=== PATIENT | male | born 1965 | race Caucasian/White ===

== ENCOUNTER → 2018-01-20 | Outpatient (CLI) | payer BC ==
--- NOTE | 2018-01-20 14:59 | US ---
EXAMINATION TYPE: US bladder DATE OF EXAM: 01/20/2018 COMPARISON: NONE CLINICAL HISTORY: R10.9 Unspecified abdominal pain. Pelvic pressure for 3 days, recent chills, mild u rinary frequency EXAM MEASUREMENTS: Post Void Residual Volume: 17.1 mL Color Doppler performed to assess ureteral jets. Bilateral Jets seen: yes Normal Post Void Residual (less than 50ml): yes IMPRESSION: No significant abnormality seen.
== END | disposition home or self-care (01) ==
LOC: RADUSWWP 13:38
PROVIDERS: ATTEND Family Medicine
DX: R10.9 Unspecified abdominal pain (principal)
CPT/HCPCS: 76857

== ENCOUNTER 2020-10-05 10:40 | Observation (INO) | payer BC ==
[2020-10-05 11:02] LABS: Glucose,Whole Blood 178 mg/dL (75-99)
[2020-10-05] MEDS ORDERED: SODIUM CHLORIDE 0.9% 500 ML 500 ML IV STA (11:07)
--- NOTE | 2020-10-05 11:16 | ED ---
General Adult HPI - General Chief complaint: Neuro Symptoms/Deficit Stated complaint: R facial droop Time Seen by Provider: 10/05/20 10:45 Source: patient, RN notes reviewed, old records reviewed Mode of arrival: wheelchair Limitations: no limitations - History of Present Illness Initial comments: This a 55-year-old male who presents emergency Department with a recent past medical history significant for COVID then 5 weeks later myocarditis and at that time also diagnosed with A. fib and placed on amiodarone beta leia and eliquis. She presents today stating that last night he noticed his eye tearing at about 11:00 at night and continued to tear throughout the night. Patient states she got up and 10:00 today he went to eat cereal and he noticed a serial was falling out of the right side of his mouth. Patient then looked in the mirror noticed that he had facial droop on the right side. Patient denies any weakness or numbness. Patient denies any headache. Patient denies any chest pain palpitations difficulty breathing shortness of breath. Patient denies any recent fever chills or cough. Patient denies abdominal pain patient denies nausea vomiting diarrhea. - Related Data Home Medications Medication Instructions Recorded Confirmed Amiodarone HCl [Pacerone] 200 mg PO BID 10/05/20 10/05/20 Apixaban [Eliquis] 5 mg PO BID 10/05/20 10/05/20 Atorvastatin Calcium [Lipitor] 40 mg PO HS 10/05/20 10/05/20 Metoprolol Succinate (ER) [Toprol 12.5 mg PO DAILY 10/05/20 10/05/20 Xl] Sacubitril/Valsartan [Entresto 24 1 tab PO BID 10/05/20 10/05/20 mg-26 mg Tablet] Spironolactone [Aldactone] 12.5 mg PO DAILY 10/05/20 10/05/20 Allergies Allergy/AdvReac Type Severity Reaction Status Date / Time No Known Allergies Allergy Verified 10/05/20 11:41 Review of Systems ROS Statement: Those systems with pertinent positive or pertinent negative responses have been documented in the HPI. ROS Other: All systems not noted in ROS Statement are negative. Past Medical History Past Medical History: Atrial Flutter Additional Past Medical History / Comment(s): myocarditis possibly due to covid History of Any Multi-Drug Resistant Organisms: None Reported Past Surgical History: Hernia Repair Additional Past Surgical History / Comment(s): R bicep Past Psychological History: No Psychological Hx Reported Smoking Status: Never smoker Past Alcohol Use History: Occasional Past Drug Use History: None Reported General Exam - General Exam Comments Initial Comments: GENERAL: Patient is well-developed and well-nourished. Patient is nontoxic and well- hydrated and is in mild distress. ENT: Neck is soft and supple. No significant lymphadenopathy is noted. Oropharynx is clear. Moist mucous membranes. Neck has full range of motion without eliciting any pain. EYES: The sclera were anicteric and conjunctiva were pink and moist. Extraocular movements were intact and pupils were equal round and reactive to light. Eyelids were unremarkable. PULMONARY: Unlabored respirations. Good breath sounds bilaterally. No audible rales rhonchi or wheezing was noted. CARDIOVASCULAR: There is a regular rate and rhythm without any murmurs gallops or rubs. ABDOMEN: Soft and nontender with normal bowel sounds. SKIN: Skin is clear with no lesions or rashes and otherwise unremarkable. NEUROLOGIC: Patient is alert and oriented x3. Patient has right-sided facial droop forehead appears to be involved as well but not completely. MUSCULOSKELETAL: Normal extremities with adequate strength and full range of motion. No lower extremity swelling or edema. No calf tenderness. LYMPHATICS: No significant lymphadenopathy is noted PSYCHIATRIC: Normal psychiatric evaluation. Limitations: no limitations Course Vital Signs 10/05/20 10/05/20 10/05/20 10:42 11:15 11:30 Temperature 98 F Pulse Rate 90 85 72 Respiratory 18 18 18 Rate Blood Pressure 131/81 143/78 134/79 O2 Sat by Pulse 98 97 98 Oximetry Medical Decision Making - Medical Decision Making EKG shows normal sinus rhythm at 80 bpm WI interval is 168 QRSs 86 QT interval 4 20 QTC is 44. Patient's EKG shows no ST segment elevation or depression. CT of the brain shows no acute abnormalities CT of the head and neck show no acute abnormality. Dr. Rodarte has reviewed the CAT scans he did not believe the patient was having a stroke however he wanted the patient admitted to get an MRI and put on aspirin. 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 - Lab Data Result diagrams: 10/05/20 11:22 10/05/20 11:22 Lab Results 10/05/20 10/05/2010/05/21 Range/Units 10:53 11:22 11:22 WBC 13.1 H (3.8-10.6) k/uL RBC 4.87 (4.30-5.90) m/uL Hgb 15.1 (13.0-17.5) gm/dL Hct 43.9 (39.0-53.0) % MCV 90.2 (80.0-100.0) fL MCH 31.1 (25.0-35.0) pg MCHC 34.4 (31.0-37.0) g/dL RDW 12.2 (11.5-15.5) % Plt Count 477 H (150-450) k/uL MPV 6.6 Neutrophils % 78 % Lymphocytes % 14 % Monocytes % 4 % Eosinophils % 1 % Basophils % 1 % Neutrophils # 10.3 H (1.3-7.7) k/uL Lymphocytes # 1.9 (1.0-4.8) k/uL Monocytes # 0.5 (0-1.0) k/uL Eosinophils # 0.2 (0-0.7) k/uL Basophils # 0.1 (0-0.2) k/uL PT 11.2 (9.0-12.0) sec INR 1.1 (<1.2) APTT 26.5 (22.0-30.0) sec Sodium (137-145) mmol/L Potassium (3.5-5.1) mmol/L Chloride (98-107) mmol/L Carbon Dioxide (22-30) mmol/L Anion Gap mmol/L BUN (9-20) mg/dL Creatinine (0.66-1.25) mg/dL Est GFR (CKD-EPI)AfAm (>60 ml/min/1.73 sqM) Est GFR (CKD-EPI)NonAf (>60 ml/min/1.73 sqM) Glucose (74-99) mg/dL POC Glucose (mg/dL) 178 H (75-99) mg/dL POC Glu Epic Trainer ID Juju Montalvo Calcium (8.4-10.2) mg/dL Total Bilirubin (0.2-1.3) mg/dL AST (17-59) U/L ALT (4-49) U/L Alkaline Phosphatase (38-126) U/L Total Protein (6.3-8.2) g/dL Albumin (3.5-5.0) g/dL Coronavirus (PCR) (Not Detectd) 10/05/20 10/05/20 Range/Units 11:22 12:02 WBC (3.8-10.6) k/uL RBC (4.30-5.90) m/uL Hgb (13.0-17.5) gm/dL Hct (39.0-53.0) % MCV (80.0-100.0) fL MCH (25.0-35.0) pg MCHC (31.0-37.0) g/dL RDW (11.5-15.5) % Plt Count (150-450) k/uL MPV Neutrophils % % Lymphocytes % % Monocytes % % Eosinophils % % Basophils % % Neutrophils # (1.3-7.7) k/uL Lymphocytes # (1.0-4.8) k/uL Monocytes # (0-1.0) k/uL Eosinophils # (0-0.7) k/uL Basophils # (0-0.2) k/uL PT (9.0-12.0) sec INR (<1.2) APTT (22.0-30.0) sec Sodium 137 (137-145) mmol/L Potassium 4.4 (3.5-5.1) mmol/L Chloride 104 (98-107) mmol/L Carbon Dioxide 23 (22-30) mmol/L Anion Gap 10 mmol/L BUN 15 (9-20) mg/dL Creatinine 0.96 (0.66-1.25) mg/dL Est GFR (CKD-EPI)AfAm >90 (>60 ml/min/1.73 sqM) Est GFR (CKD-EPI)NonAf 90 (>60 ml/min/1.73 sqM) Glucose 187 H (74-99) mg/dL POC Glucose (mg/dL) (75-99) mg/dL POC Glu Epic Trainer ID Calcium 9.3 (8.4-10.2) mg/dL Total Bilirubin 0.7 (0.2-1.3) mg/dL AST 32 (17-59) U/L ALT 50 H (4-49) U/L Alkaline Phosphatase 90 (38-126) U/L Total Protein 7.3 (6.3-8.2) g/dL Albumin 3.9 (3.5-5.0) g/dL Coronavirus (PCR) Not Detected (Not Detectd) Disposition Clinical Impression: Facial droop, Arora's palsy Disposition: ADMITTED IP TO THIS HOSP Referrals: Andrés Jeffers MD [Primary Care Provider] - 1-2 days Time of Disposition: 12:37
[2020-10-05 11:29] LABS: Basophils # (A) 0.1 k/uL (0-0.2); Basophils % (A) 1 %; Eosinophils # (A) 0.2 k/uL (0-0.7); Eosinophils % (A) 1 %; HCT 43.9 % (39.0-53.0); HGB 15.1 gm/dL (13.0-17.5); Lymphocytes # (A) 1.9 k/uL (1.0-4.8); Lymphocytes % (A) 14 %; MCH 31.1 pg (25.0-35.0); MCHC 34.4 g/dL (31.0-37.0); MCV 90.2 fL (80.0-100.0); Mean Platelet Volume 6.6; Monocytes # (A) 0.5 k/uL (0-1.0); Monocytes % (A) 4 %; Neutrophils # (A) 10.3 k/uL (1.3-7.7); Neutrophils % (A) 78 %; Platelet Count 477 k/uL (150-450); RBC 4.87 m/uL (4.30-5.90); RDW 12.2 % (11.5-15.5); WBC 13.1 k/uL (3.8-10.6)
[2020-10-05 11:49] LABS: INR 1.1 (<1.2); Partial Thromboplastin Time 26.5 sec (22.0-30.0); Prothrombin Time 11.2 sec (9.0-12.0)
[2020-10-05 11:53] LABS: ALT 50 U/L (4-49); AST 32 U/L (17-59); African American GFR (CKD) >90 (>60 ml/min/1.73 sqM); Albumin 3.9 g/dL (3.5-5.0); Alkaline Phosphatase 90 U/L (38-126); Anion Gap 10 mmol/L; Blood Urea Nitrogen 15 mg/dL (9-20); Calcium 9.3 mg/dL (8.4-10.2); Carbon Dioxide 23 mmol/L (22-30); Chloride 104 mmol/L (98-107); Glucose 187 mg/dL (74-99); Non-African American GFR(CKD) 90 (>60 ml/min/1.73 sqM); Potassium 4.4 mmol/L (3.5-5.1); Sodium 137 mmol/L (137-145); Total Bilirubin 0.7 mg/dL (0.2-1.3); Total Protein 7.3 g/dL (6.3-8.2)
--- NOTE | 2020-10-05 12:10 | CT ---
EXAMINATION TYPE: CT brain wo con for TPA DATE OF EXAM: 10/05/2020 COMPARISON: INDICATION: Right sided facial droop DLP: 1101.8 mGycm, Automated exposure control for dose reduction was used. CONTRAST: None CT of the brain is performed utilizing 3 mm thick sections through the posterior fossa and 3 mm thick sections through the remaining calvarium. Study is performed within 24 hours of arrival to the hosp [facility]. No abnormal hyperdensity is present to suggest an acute intracranial hemorrhage. No mass lesion is evident. No acute infarcts are evident. Ventricles and sulci are appropriate for the patient age. Paranasal sinuses and mastoid air cells within the [id number] are clear. IMPRESSIONS: 1. Normal CT Brain
--- NOTE | 2020-10-05 12:13 | XR ---
EXAMINATION TYPE: XR chest 2V DATE OF EXAM: 10/05/2020 COMPARISON: 08/09/2017 INDICATION: Acute mental status change right-sided drooping TECHNIQUE: Frontal and lateral views of the chest are obtained. FINDINGS: The heart size is normal. The pulmonary vasculature is normal. The lungs are clear. IMPRESSION: 1. No acute pulmonary process.
--- NOTE | 2020-10-05 12:24 | CT ---
EXAMINATION TYPE: CT angio head neck DATE OF EXAM: 10/05/2020 HISTORY: Right sided facial droop COMPARISON: None CT DLP: 745.6 mGycm. Automated Exposure Control for Dose Reduction was Utilized. TECHNIQUE: CTA scan of the neck is performed with IV Contrast, patient injected with 65 mL of Isovue 370, axial images are obtained, coronal and sagittal reformatted images are reviewed. Three-D recons tructed images are created on an independent workstation and reviewed. Source images are reviewed. FINDINGS: Carotid/Vascular Structures: There is a three-vessel arch. Vertebral arteries are codominant. Vertebr al arteries and internal carotid arteries are patent to the level of the skull base. Carotid bifurcat ions appear normal without focal stenosis. Cervical of [place]: Vertebral basilar system appears normal. Posterior cerebral vasculature is unrema rkable. Internal carotid arteries bifurcate normally into A1 and M1 segments. A2 segments are normal. The anterior communicating artery is patent. Left Posterior communicating artery is patent. Right po sterior communicating artery is patent. IMPRESSION: 1. No flow-limiting stenosis bilateral carotid bifurcations. 2. Normal [place] of [place].
[2020-10-05] MEDS ORDERED: ASPIRIN 325 MG TAB PO STA (12:37)
[2020-10-05] MEDS ORDERED: SODIUM CHLORIDE 0.9% 1,000 ML IV SCH (12:45)
[2020-10-05] MEDS: predniSONE 20 MG TAB PO SCH ×2 (13:36→19:58)
[2020-10-05] MEDS: valACYclovir HCL 1,000 MG TABLET PO SCH ×2 (13:37→19:58)
--- NOTE | 2020-10-05 18:54 | P.CNNES ---
History of Present Illness Consult date: 10/05/20 Reason for Consult: Arora's palsy History of Present Illness: The patient is a 55-year-old male who is seen in neurologic consultation on October 05, 2020, via teleneurology. Patient reports getting out of bed as usual this morning. He felt normal. He went into the kitchen to have breakfast. He did not realize or sinking wrong until he realized he was having difficulty with the milk, from his cereal, leaking from the right side of his mouth. The patient looked at his face in the mirror and realized there was drooping of the right side. The patient was concerned regarding stroke. He denies changes in his vision. He denies weakn ess in his extremities. Patient reported no difficulty swallowing. He did notice difficulty with control of his tongue. Patient notes that he began losing his taste proximally 2 days ago. Patient denied difficulty with speech. I he denies headache. He reports chronic tinnitus. The patient was worked up in the emergency department with a CT scan of the brain and CT angiogram of the head and neck. Both of these tests were normal. The [place] neurology team was contacted. They diagnosed the patient with Arora's palsy and recommended admission for MRI of the brain. The patient was also sta rted on prednisone and antiviral medications. Recently, the patient was diagnosed and treated for viral myocarditis. Prior to this diagnosis, the patient was diagnosed with Covid 19. Past Medical History Past Medical History: Atrial Flutter Additional Past Medical History / Comment(s): myocarditis possibly due to covid History of Any Multi-Drug Resistant Organisms: None Reported Past Surgical History: Hernia Repair Additional Past Surgical History / Comment(s): R bicep Smoking Status: Never smoker - Past Family History Father Family Medical History: Cancer, Diabetes Mellitus Additional Family Medical History / Comment(s): lung and prostrate CA Mother Family Medical History: Cancer Additional Family Medical History / Comment(s): from lung CA Medications and Allergies Home Medications Medication Instructions Recorded Confirmed Type Amiodarone HCl [Pacerone] 200 mg PO BID 10/05/20 10/05/20 History Apixaban [Eliquis] 5 mg PO BID 10/05/20 10/05/20 History Atorvastatin Calcium [Lipitor] 40 mg PO HS 10/05/20 10/05/20 History Metoprolol Succinate (ER) [Toprol 12.5 mg PO DAILY 10/05/20 10/05/20 History Xl] Sacubitril/Valsartan [Entresto 24 1 tab PO BID 10/05/20 10/05/20 History mg-26 mg Tablet] Spironolactone [Aldactone] 12.5 mg PO DAILY 10/05/20 10/05/20 History Allergies Allergy/AdvReac Type Severity Reaction Status Date / Time No Known Allergies Allergy Verified 10/05/20 11:41 Physical Examination - Vital Signs Vital Signs: Vital Signs Temp Pulse Pulse Resp BP BP Pulse Ox 10/05/20 16:00 98 F 85 16 128/68 94 L 10/05/20 14:03 97.2 F L 73 16 120/74 99 10/05/20 13:34 98.3 F 68 18 141/75 95 10/05/20 12:40 76 18 134/72 98 10/05/20 11:30 72 18 134/79 98 10/05/20 11:15 85 18 143/78 97 10/05/20 10:42 98 F 90 18 131/81 98 Intake and Output 10/05/20 10/05/20 10/05/20 06:59 14:59 22:59 Intake Total 1110 Balance 1110 Intake: Intake, IV Titration 0 Amount Sodium Chloride 0.9% 1, 0 000 ml @ 20 mls/hr IV . Q24H [facility] Rx#:[id number] Oral 1110 Other: Weight 98.702 kg Gen.: The patient is seated in the bedside chair. He is well-nourished, well- developed and in no acute distress. HEENT: Head is atraumatic, normocephalic. Fundus not visualized. There is no scleral icterus. Mucous membranes are moist. Neck: Supple without carotid bruits Heart: Regular rate and rhythm Lungs: Clear to auscultation Extremities: Without edema Neurological examination Mental status: The patient is awake, alert and oriented 3. His speech is clear. Cranial nerves: Pupils are equal at 2 millimeters and reactive. Visual finney are full to confrontation. Extraocular movements are intact. There is no nystagmus. Facial sensation is intact. There is right ptosis. Right lower motor neuron facial droop. Decreased elevation of the right eyebrow. And decreased right upper eyelid closure. Hearing is intact. Uvula and palate are midline. Shoulder shrug is symmetric. Tongue protrudes midline. Motor: Strength is 5/5 throughout. Coordination: Finger to nose and heel to dyer testing are intact. Sensation: Grossly intact to light touch throughout. Deep tendon reflexes: 2+/4+ throughout Results - Laboratory Findings CBC and BMP: 10/05/20 11:22 10/05/20 11:22 Abnormal Lab Findings: Abnormal Labs 10/05/20 10/05/20 10/05/20 10:53 11:22 11:22 WBC 13.1 H Plt Count 477 H Neutrophils # 10.3 H Glucose 187 H POC Glucose (mg/dL) 178 H ALT 50 H Assessment and Plan Assessment: 1. 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 Recent viral myocarditis 3. Recent Covid 19 infection Plan: 1. Await MRI of brain 2. Agree with steroids and antiviral treatment 3. Advised the patient to tape his eye lid closed at night to prevent drying and damage to the cornea. I also advised him to use eyedrops liberally. 4. Suggested the patient do exercises such as whistling, blowing out candles and sucking from a straw, to improve the movement of his facial muscles 5. If MRI is negative patient is neurologically stable for discharge Time with Patient: Greater than 30 (spent 40 minutes with patient via teleneurology)
[2020-10-05] MEDS: AMIODARONE 200 MG TAB PO SCH (19:58)
[2020-10-05] MEDS: SACUBITRIL/VALSARTAN 24 MG-26 MG TABLET PO SCH (19:58)
[2020-10-05] MEDS ORDERED: ATORVASTATIN 40 MG TAB PO SCH (21:00)
[2020-10-05 22:13] VITALS: RESP 17
[2020-10-06 02:56] LABS: Cholesterol 141 mg/dL (<200); HDL Cholesterol 36 mg/dL (40-60); LDL Cholesterol,Calculated 83 mg/dL (0-99); Triglycerides 112 mg/dL (<150)
[2020-10-06] MEDS ORDERED: METOPROLOL SUCCINATE (ER) 25 MG TAB.ER.24H PO SCH (09:00)
[2020-10-06] MEDS ORDERED: SPIRONOLACTONE 25 MG TAB PO SCH (09:00)
[2020-10-06] MEDS: predniSONE 20 MG TAB PO SCH (09:09)
[2020-10-06] MEDS: valACYclovir HCL 1,000 MG TABLET PO SCH (09:10)
[2020-10-06] MEDS: AMIODARONE 200 MG TAB PO SCH (09:10)
[2020-10-06] MEDS: SACUBITRIL/VALSARTAN 24 MG-26 MG TABLET PO SCH (09:10)
[2020-10-06 11:16] VITALS: TEMP 97.3
--- NOTE | 2020-10-06 15:06 | MR ---
EXAMINATION TYPE: MR brain wo con DATE OF EXAM: 10/06/2020 2:47 PM COMPARISON: NONE HISTORY: Neuro deficit, acute, stroke suspected Multiplanar and multispin-echo imaging of the brain was performed . The ventricles, basal cisterns and sulci overlying the cerebral convexities are within normal limits. There is no evidence for midline shift or mass effect. Acute intracranial hemorrhage or extra-axial collection is not evident. Diffusion-weighted imaging demonstrates 2 tiny foci of increased signal within the left occipital lob e image 18 of 34 felt to reflect tiny acute vascular insults. No additional areas of abnormal increas ed signal are seen on diffusion weighted imaging. T2 FLAIR imaging demonstrates a few scattered tiny foci of subcortical and juxtacortical increased si gnal within both cerebral hemispheres totaling approximately 9 left cerebral hemisphere and approxima tely 10 right cerebral hemisphere. Lesions measure up to 4.2 mm. The paranasal sinuses and mastoid air cells are well-aerated. IMPRESSION: 1.Diffusion-weighted imaging demonstrates 2 tiny foci of increased signal within the left occipital l obe image 18 of 34 felt to reflect tiny acute vascular insults. 2. Nonspecific white matter lesions as discussed.
[2020-10-06 15:26] VITALS: BP 130/76; PULSE 83
[2020-10-07] MEDS ORDERED: ASPIRIN 325 MG TAB PO SCH (09:00)
--- NOTE | 2020-10-11 09:34 | P.HPIM ---
History of Present Illness H&P Date: 10/05/20 Chief Complaint: Right arora's paly HISTORY OF PRESENT ILLNESS: This is a 55-year-old male one of my patient with no prior medical history was pretty healthy up till recently when he went to [place] and he was diagnosed with COVID-19 back in 08/14/2020 he was treated conservatively, he seems to have recovered very well from it however the patient developed to have a significant viral illness about a few weeks back with upper respiratory tract infection associated with fever and chills abdominal pain nausea vomiting and diarrhea he thought that he is having Covid again, he was tested for that came back negative, patient went to the walk-in clinic over that he was diagnosed with viral illness he was in [place] when he developed to have a significant onset of increased shortness of breath associated with increased swelling in both lower extremities along with increased shortness of breath walking for a very short distance which is unlike him, his ended up taking him to the emergency department at [facility] in [place] and he was diagnosed with what appears to be acute myocarditis the exact etiology was not known patient stayed in the hospital he was started on IV diuretics, he was placed also on beta blockers as well as on Entresto, he was waiting to go to the [facility] in [place] and he was waiting for the bed to become available eventually was transferred to the [facility] and he was seen by cardiology over there, he was started on heparin drip initially because of his atrial fibrillation with rapid ventricular response, his ejection fraction according to him was about 1050%, was diagnosed with acute myocarditis with cardiomyopathy likely viral not sure if it's Covid or some other viruses,patient was treated and he was placed eventually on metoprolol,Entresto, Eliquis, spironolactone, and he went back home patient was doing fine up until today when he was sitting up at the breakfast table trying to eat cereal and also that he noticed that he is having some drooling on the other side of his face because is not able to swallow very well, due to the mirror and he noticed that his face is weak with his mouth shifted to the left side he called 911 and patient was brought into the ER for evaluation a code stroke was called and patient has CTA of the neck and the circular fullness came back negative, computed tomography scan of the brain did not show any evidence of acute of normalities patient didn't appear to have Arora palsy was started on prednisone 40 mg orally twice every day along with Valtrex 1 g orally 3 times every day he was seen in consultation by neurology and was recommended for the patient to have an MRI of the brain to rule out any acute stroke, patient was admitted to the hospital for evaluation and treatment. REVIEW OF SYSTEMS: Constitutional: No documented fever, no chills, no night sweats. No weight change. No weakness, fatigue or lethargy. No daytime sleepiness. HEENT: No headache. Positive for right eye blurred vision no double vision, no loss of vision. No loss of Hearing, no ringing in the ears, no dizziness. No nasal drainage or congestion. No epistaxis. No sore throat. Lungs: No shortness of breath, no cough, no sputum production. No wheezing. Reports dyspnea with activity. Cardiovascular: No chest pain, no lower extremity edema. No palpitations. No paroxysmal nocturnal dyspnea. No orthopnea. No lightheadedness or dizziness. No syncopal episodes. Abdominal: Reports no abdominal pain. No nausea, vomiting. No diarrhea. No constipation. No bloody or tarry stools reports loss of appetite. Genitourinary: No dysuria, increased frequency, urgency. No urinary retention. Musculoskeletal: No myalgias. No muscle weakness, no gait dysfunction, no frequ ent falls. No back pain. No neck pain. Integumentary: No wounds, no lesions. No rash or pruritus. No unusual bruising. No change in hair or nails. Neurologic: No aphasia. Positive for facial droop. No change in mentation. No head injury. No headache. No paralysis. No paresthesia. Psychiatric: No depression. No anxiety. No mood swings. Endocrine: No abnormal blood sugars. No weight change. PAST MEDICAL HISTORY: Viral myocarditis . Recent COVID-19 Paroxysmal atrial fibrillation. Mixed hyperlipidemia. Hypertension and hypertensive cardiovascular disease Arora palsy PAST SURGICAL HISTORY: Hernia repair. Colonoscopy. SOCIAL HISTORY: Patient has a history of smoking and no history of drinking no drug use or abuse, no marijuana use is a retired floorman FAMILY HISTORY: Father from prostate cancer and lung cancer and had history of diabetes, mother from lung cancer. PHYSICAL EXAMINATION: General: This is a 55-year-old male who is sitting up in bed in no apparent distress he does appear to have right-sided facial weakness. HEENT: Head is atraumatic, , right sided facial weakness ,pupils were equal round reactive to light and recommendation, extraocular muscle movement were intact, sclera nonicteric, conjunctivae were pale, mucous membranes of the mouth are somewhat dry. Neck: Supple, no JVP, normal carotid upstroke bilaterally, no lymphadenopathy. Chest: Decreased breath sounds at the bases, few rhonchi, no expiratory wheezes, no chest wall tenderness, no intercostal retractions. Heart: First heart sound is normal, second heart sound is normal there is no gallop or murmur or history Abdomen: Soft, nontender, nondistended, positive bowel sounds. Extremities: There is no edema no calf tenderness DP +2 bilaterally. Neurologic examination: Patient is awake alert and oriented X 3, cranial nerves II-12 appear grossly intact, muscle power were 5 out of 5 in upper extremities and 5 out of 5 in bilateral lower extremities, deep tendon reflexes normal bilaterally, right-sided facial weakness. ASSESSMENT AND PLAN: 1. Arora palsy. Patient was started on prednisone 40 mg orally twice every day, Valtrex 1 g orally 3 times every day, she will need to be seen by speech therapist for increase the strength of the swallowing and the facial muscles, patient was seen in consultation by neurology, she recommended for him to go for MRI of the brain with and without contrast. 2. Possible acute cerebrovascular accident with the results of MRI, if it's positive start the patient on a baby aspirin along with Eliquis , and continued aggressive risk factor modification and lifestyle changes. 3. Viral myocarditis with cardiomyopathy. Continue metoprolol 12.5 mg orally once every day, continue amiodarone 200 mg orally twice every day, continue spironolactone 12.5 mg orally once every day, continue atorvastatin 40 mg orally once every day, we will continue with entresto 24-26 mg orally twice every day. 4. Paroxysmal atrial fibrillation currently in sinus rhythm. Continue amiodarone 200 mg orally twice every day continue Eliquis 5 mg orally twice every day. 5. Hyperlipidemia. Continue Lipitor 40 mg orally once every day, keep LDL cholesterol 55-70. 6. Hypertension and hypertensive cardiovascular disease. Continue Toprol-XL 12.5 minute gram orally once every day. 7. DVT prophylaxis. Continue Eliquis 5 mg orally twice every day. 8. GI prophylaxis. Continue Pepcid 20 mg orally once every day. 9. Admit to inpatient. Estimate a length of stay 2 midnights. 10. Patient is full code. Past Medical History Past Medical History: Atrial Flutter Additional Past Medical History / Comment(s): myocarditis possibly due to covid History of Any Multi-Drug Resistant Organisms: None Reported Past Surgical History: Hernia Repair Additional Past Surgical History / Comment(s): R bicep Past Psychological History: No Psychological Hx Reported Smoking Status: Never smoker Past Alcohol Use History: Occasional Past Drug Use History: None Reported - Past Family History Father Family Medical History: Cancer, Diabetes Mellitus Additional Family Medical History / Comment(s): lung and prostrate CA Mother Family Medical History: Cancer Additional Family Medical History / Comment(s): from lung CA Medications and Allergies Home Medications Medication Instructions Recorded Confirmed Type Amiodarone HCl [Pacerone] 200 mg PO BID 10/05/20 10/05/20 History Apixaban [Eliquis] 5 mg PO BID 10/05/20 10/05/20 History Atorvastatin Calcium [Lipitor] 40 mg PO HS 10/05/20 10/05/20 History Metoprolol Succinate (ER) [Toprol 12.5 mg PO DAILY 10/05/20 10/05/20 History XL] Sacubitril/Valsartan [Entresto 24 1 tab PO BID 10/05/20 10/05/20 History mg-26 mg Tablet] Spironolactone [Aldactone] 12.5 mg PO DAILY 10/05/20 10/05/20 History predniSONE [Deltasone] 40 mg PO DAILY 12 Days #14 tab 10/06/20 Rx valACYclovir HCL [Valtrex] 1,000 mg PO TID #21 tablet 10/06/20 Rx Allergies Allergy/AdvReac Type Severity Reaction Status Date / Time No Known Allergies Allergy Verified 10/05/20 11:41 Physical Exam Vitals: Vital Signs Temp Pulse Resp BP Pulse Ox 10/05/20 12:40 76 18 134/72 98 10/05/20 11:30 72 18 134/79 98 10/05/20 11:15 85 18 143/78 97 10/05/20 10:42 98 F 90 18 131/81 98 Intake and Output 10/04/20 10/05/20 10/05/20 22:59 06:59 14:59 Other: Weight 98.702 kg Results CBC & Chem 7: 10/05/20 11:22 10/05/20 11:22 Labs: Abnormal Lab Results - Last 24 Hours (Table) 10/05/20 10/05/20 10/05/20 Range/Units 10:53 11:22 11:22 WBC 13.1 H (3.8-10.6) k/uL Plt Count 477 H (150-450) k/uL Neutrophils # 10.3 H (1.3-7.7) k/uL Glucose 187 H (74-99) mg/dL POC Glucose (mg/dL) 178 H (75-99) mg/dL ALT 50 H (4-49) U/L
--- NOTE | 2020-10-11 09:38 | P.DS ---
Providers Date of admission: 10/05/20 12:37 Expected date of discharge: 10/06/20 Attending physician: Andrés Jeffers Consults: 10/05/20 12:38 Consult Physician Routine Consulting Provider: Monae Yeager Consult Reason/Comments: Facial droop, Arora's palsy Do you want consulting provider notified?: Yes Primary care physician: Andrés Jeffers [facility] Course: HISTORY OF PRESENT ILLNESS: This is a 55-year-old male one of my patient with no prior medical history was pretty healthy up till recently when he went to [place] and he was diagnosed with COVID-19 back in 08/14/2020 he was treated conservatively, he seems to have recovered very well from it however the patient developed to have a significant viral illness about a few weeks back with upper respiratory tract infection associated with fever and chills abdominal pain nausea vomiting and diarrhea he thought that he is having Covid again, he was tested for that came back negative, patient went to the walk-in clinic over that he was diagnosed with viral illness he was in [place] when he developed to have a significant onset of increased shortness of breath associated with increased swelling in both lower extremities along with increased shortness of breath walking for a very short distance which is unlike him, his ended up taking him to the emergency department at [facility] in [place] and he was diagnosed with what appears to be acute myocarditis the exact etiology was not known patient stayed in the hospital he was started on IV diuretics, he was placed also on beta blockers as well as on Entresto, he was waiting to go to the [facility] in [place] and he was waiting for the bed to become available eventually was transferred to the [facility] and he was seen by cardiology over there, he was started on heparin drip initially because of his atrial fibrillation with rapid ventricular response, his ejection fraction according to him was about 1050%, was diagnosed with acute myocarditis with cardiomyopathy likely viral not sure if it's Covid or some other viruses,patient was treated and he was placed eventually on metoprolol,Entresto, Eliquis, spironolactone, and he went back home patient was doing fine up until today when he was sitting up at the breakfast table trying to eat cereal and also that he noticed that he is having some drooling on the other side of his face because is not able to swallow very well, due to the mirror and he noticed that his face is weak with his mouth shifted to the left side he called 911 and patient was brought into the ER for evaluation a code stroke was called and patient has CTA of the neck and the circular fullness came back negative, computed tomography scan of the brain did not show any evidence of acute of normalities patient didn't appear to have Arora palsy was started on prednisone 40 mg orally twice every day along with Valtrex 1 g orally 3 times every day he was seen in consultation by neurology and was recommended for the patient to have an MRI of the brain to rule out any acute stroke, patient was admitted to the hospital for evaluation and treatment. 10/06: Patient was seen in the hospital he was sitting up in bed he was scheduled to go for MRI of the brain with and without gadolinium today, I gave the order for the nursing staff to send him home after the MRI report, his MRI results showed 2 vascular insult in the left occipital lobe, patient was injected follow-up with me as an outpatient, he was started on baby aspirin 81 mg once every day along with Eliquis 5 mg orally twice every day, continue Lipitor 40 mg once every day, we will follow-up with neurology his elected to go see Dr. Henry, he will follow-up with ophthalmology, he was also instructed to use Refresh Tears and tape his eyelid of the right eye so he doesn't end up with corneal ulcers, patient will follow-up with cardiology later on this afternoon, and he'll follow-up with me as an outpatient in 2-3 days. PHYSICAL EXAMINATION: General: This is a 55-year-old male who is sitting up in bed in no apparent distress he does appear to have right-sided facial weakness. HEENT: Head is atraumatic, , right sided facial weakness ,pupils were equal round reactive to light and recommendation, extraocular muscle movement were intact, sclera nonicteric, conjunctivae were pale, mucous membranes of the mouth are somewhat dry. Neck: Supple, no JVP, normal carotid upstroke bilaterally, no lymphadenopathy. Chest: Decreased breath sounds at the bases, few rhonchi, no expiratory wheezes, no chest wall tenderness, no intercostal retractions. Heart: First heart sound is normal, second heart sound is normal there is no gallop or murmur or history Abdomen: Soft, nontender, nondistended, positive bowel sounds. Extremities: There is no edema no calf tenderness DP +2 bilaterally. Neurologic examination: Patient is awake alert and oriented X 3, cranial nerves II-12 appear grossly intact, muscle power were 5 out of 5 in upper extremities and 5 out of 5 in bilateral lower extremities, deep tendon reflexes normal bilaterally, right-sided facial weakness. discharge diagnoses: 1. Arora palsy. 2. Acute left occipital stroke. 3. Viral myocarditis with cardiomyopathy. . 4. Paroxysmal atrial fibrillation currently in sinus rhythm. 5. Hyperlipidemia. 6. Hypertension and hypertensive cardiovascular disease. Patient Condition at Discharge: Fair Plan - Discharge Summary Discharge Rx Participant: Yes New Discharge Prescriptions: New predniSONE [Deltasone] 40 mg PO DAILY 12 Days #14 tab valACYclovir HCL [Valtrex] 1,000 mg PO TID #21 tablet Continue Spironolactone [Aldactone] 12.5 mg PO DAILY Metoprolol Succinate (ER) [Toprol XL] 12.5 mg PO DAILY Atorvastatin Calcium [Lipitor] 40 mg PO HS Amiodarone HCl [Pacerone] 200 mg PO BID Sacubitril/Valsartan [Entresto 24 mg-26 mg Tablet] 1 tab PO BID Apixaban [Eliquis] 5 mg PO BID Discharge Medication List Amiodarone HCl [Pacerone] 200 mg PO BID 10/05/20 [History] Apixaban [Eliquis] 5 mg PO BID 10/05/20 [History] Atorvastatin Calcium [Lipitor] 40 mg PO HS 10/05/20 [History] Metoprolol Succinate (ER) [Toprol XL] 12.5 mg PO DAILY 10/05/20 [History] Sacubitril/Valsartan [Entresto 24 mg-26 mg Tablet] 1 tab PO BID 10/05/20 [History] Spironolactone [Aldactone] 12.5 mg PO DAILY 10/05/20 [History] predniSONE [Deltasone] 40 mg PO DAILY 12 Days #14 tab 10/06/20 [Rx] valACYclovir HCL [Valtrex] 1,000 mg PO TID #21 tablet 10/06/20 [Rx] Follow up Appointment(s)/Referral(s): Andrés Jeffers MD [Primary Care Provider] - 10/14/20 11:15 am Patient Instructions/Handouts: Arora Palsy (DC) Discharge Disposition: HOME SELF-CARE
== END 2020-10-06 15:20 | disposition home or self-care (01) ==
LOC: EC 10:40 → INTOOBSV 12:37 → 3SCARD 12:37 → UNDODISIN 10-06 15:20
PROVIDERS: ADMIT Internal Medicine; ATTEND Internal Medicine
DX: G51.0 Bell's palsy (principal); I63.532 Cerebral infarction due to unspecified occlusion or stenosis of left posterior cerebral artery; I40.0 Infective myocarditis; I42.9 Cardiomyopathy, unspecified; I48.0 Paroxysmal atrial fibrillation; I11.9 Hypertensive heart disease without heart failure; E78.2 Mixed hyperlipidemia; I48.92 Unspecified atrial flutter; H93.19 Tinnitus, unspecified ear; Z20.822 Contact with and (suspected) exposure to COVID-19; Z86.16 Personal history of COVID-19; Z87.891 Personal history of nicotine dependence; Z79.01 Long term (current) use of anticoagulants; Z79.899 Other long term (current) drug therapy; Z80.1 Family history of malignant neoplasm of trachea, bronchus and lung; Z80.42 Family history of malignant neoplasm of prostate; Z83.3 Family history of diabetes mellitus
CPT/HCPCS: 96360; 99285; 36415; 93005; 97161; 97165; 80061; 80053; 84484; 85025; 85610; 85730; 87635; 71046; 70496; 70450; 70498; 70551; G0378 ×2; J7512 ×2; Q9967

== ENCOUNTER → 2020-10-17 | Outpatient (CLI) | payer BC ==
--- NOTE | 2020-10-18 06:26 | CT ---
EXAMINATION TYPE: CT brain wo/w con DATE OF EXAM: 10/17/2020 COMPARISON: CT brain 12 days ago. MRI brain 11 days ago HISTORY: Follow up for CVA. Acute onset neuro deficit 12 days earlier, right facial drooping. CT DLP: 2262.7 mGycm Automated exposure control for dose reduction was used. CONTRAST: CT scan of the head is performed without and with IV Contrast, patient injected with 100ml mL of Isov ue 300. FINDINGS: Noncontrast images show no acute intracranial hemorrhage or midline shift. The ventricles and sulci are within normal limits in size. Durbin-white matter differentiation is maintained. Postcontrast imag es show no suspicious enhancing mass. The globes are intact and the visualized sinuses are clear. IMPRESSION: Unremarkable study. Punctate areas of acute ischemia on MRI left occipital lobe less well seen on CT.
== END | disposition home or self-care (01) ==
LOC: RADCTMAIN 17:41
PROVIDERS: ATTEND Internal Medicine
DX: I67.82 Cerebral ischemia (principal)
CPT/HCPCS: 70470; Q9967

== ENCOUNTER → 2021-03-16 | Outpatient (CLI) | payer BC ==
--- NOTE | 2021-03-16 08:39 | CT ---
EXAMINATION TYPE: CT chest w con DATE OF EXAM: 03/16/2021 COMPARISON: None HISTORY: nodule CT DLP: 495.4 mGycm Automated exposure control for dose reduction was used. CONTRAST: CT scan of the chest is performed with IV Contrast, patient injected with 100 mL of Isovue 300. FINDINGS: LUNGS: 6 mm pleural-based pulmonary nodular density right lower lobe image 33 of 60. No additional no dules are present at this time. No evidence for infiltrate. No volume loss or mass. There is no pleur al effusion or pneumothorax seen. The tracheobronchial tree is patent. MEDIASTINUM: There are no greater than 1 cm hilar or mediastinal lymph nodes. No pericardial effusi on is seen. Thoracic aorta is of normal caliber. The heart is not enlarged. UPPER ABDOMEN: No significant abnormality appreciated. OTHER: No additional significant abnormality is seen. IMPRESSION: 6 mm pleural-based pulmonary nodular density right lower lobe image 33 of 60. No additional nodules a re present at this time. Six-month follow-up CT recommended.
== END | disposition home or self-care (01) ==
LOC: RADCTMAIN 07:59
PROVIDERS: ATTEND Internal Medicine
DX: R91.8 Other nonspecific abnormal finding of lung field (principal)
CPT/HCPCS: 71260; Q9967

== ENCOUNTER → 2021-10-22 | Outpatient (CLI) | payer BC ==
--- NOTE | 2021-10-23 13:06 | CT ---
EXAMINATION TYPE: CT chest wo con DATE OF EXAM: 10/23/2021 COMPARISON: 03/16/2021 HISTORY: Follow-up pulmonary nodule Automated Exposure Control for Dose Reduction was Utilized. TECHNIQUE: CT scan of the thorax is performed without IV contrast. FINDINGS: LUNGS: The 6 - 6.5 mm subpleural parenchymal nodule in the right lower lobe is again seen and is stable. The re is a stable 4 mm nodule associated with the minor fissure on the left. No new or suspicious nodule s are seen. There is no consolidative or interstitial lung parenchymal density. There is no pleural effusion, pleural thickening or pneumothorax. The great vessels the chest are normal and there is no mediastinal, hilar or axillary adenopathy. Limited scanning through the upper abdomen reveals no gross abnormality. No focal lytic or blastic bony abnormalities are seen. IMPRESSION: 1. Lung RADS category 1 benign. Continue routine screening yearly intervals. 2. Stable 6 - 6.5 mm right lower lobe subpleural parenchymal nodule. 3. No acute cardiopulmonary disease.
== END | disposition home or self-care (01) ==
LOC: RADCTMAIN 14:45
PROVIDERS: ATTEND Internal Medicine
DX: Z13.9 Encounter for screening, unspecified (principal); R91.1 Solitary pulmonary nodule
CPT/HCPCS: 71250

== ENCOUNTER → 2022-10-20 | Outpatient (CLI) | payer BC ==
--- NOTE | 2022-10-20 12:37 | CT ---
EXAMINATION TYPE: CT chest wo con DATE OF EXAM: 10/20/2022 COMPARISON: Chest CT October 22, [address] March 16, 2021 HISTORY: nodules CT DLP: 548.3 mGycm. Automated Exposure Control for Dose Reduction was Utilized. TECHNIQUE: CT scan of the thorax is performed without IV contrast. FINDINGS: LUNGS: Stable 8 x 7 mm right lower lobe peripheral nodule axial image 34. No new or enlarging greater than 5 mm pulmonary nodules. There is no pleural effusion or pneumothorax seen. The tracheobronch ial tree is patent. MEDIASTINUM: Lack of IV contrast is noted to limit evaluation for mediastinal and especially hilar ad enopathy. There are no definitive new Greater than 1 cm mediastinal lymph nodes. No cardiomegaly or pericardial effusion is seen. OTHER: Liver is heterogeneously slightly hypodense relative to spleen suggesting mild diffuse fatty i nfiltration. Bilateral subareolar flame-shaped gynecomastia is redemonstrated. IMPRESSION: Accounting for technical differences stable 7 to 8 mm peripheral right lower lobe nodule. No new or enlarging greater than 5 mm pulmonary nodules. No acute findings are evident.
== END | disposition home or self-care (01) ==
LOC: RADCTMAIN 11:54
PROVIDERS: ATTEND Internal Medicine
DX: R91.1 Solitary pulmonary nodule (principal)
CPT/HCPCS: 71250

== ENCOUNTER 2023-03-15 08:39 | Day surgery (SDC) | payer BC ==
[2023-03-08 10:20] VITALS: BMI 32.8
[~2023-03-15 08:39] MED LIST: LACTATED RINGERS 1,000 ML IV SCH; LIDOCAINE 1% (10MG/ML) FOR IV START INTRADERMA PRN
[2023-03-15 09:22] VITALS: RESP 16; TEMP 97.4
[2023-03-15] MEDS ORDERED: PROPOFOL 10 MG/ML 20 ML VIAL IV ONE (09:34)
[2023-03-15] MEDS ORDERED: LIDOCAINE 1% INJ 10MG/ML (20 ML MDV) ONE (09:34)
--- NOTE | 2023-03-15 09:38 | P.GSHP ---
History of Present Illness H&P Date: 03/15/23 Chief Complaint: Colon cancer screening 57-year-old male here for colonoscopy. Last colonoscopy 5 years ago. Patient with history of colon polyps and family history of colon cancer in grandparents and uncle. No bowel complaints. Past Medical History Past Medical History: Atrial Fibrillation, Hyperlipidemia, Hypertension Additional Past Medical History / Comment(s): myocarditis possibly due to covid 2020 History of Any Multi-Drug Resistant Organisms: None Reported Past Surgical History: Hernia Repair, Orthopedic Surgery Additional Past Surgical History / Comment(s): R bicep, colonoscopy polyps Past Anesthesia/Blood Transfusion Reactions: No Reported Reaction Additional Past Anesthesia/Blood Transfusion Reaction / Comment(s): no blood transfusion Smoking Status: Never smoker - Past Family History Father Family Medical History: Cancer, Diabetes Mellitus, Deep Vein Thrombosis (DVT) Additional Family Medical History / Comment(s): lung and prostrate CA Mother Family Medical History: Cancer Additional Family Medical History / Comment(s): from lung CA Medications and Allergies Home Medications Medication Instructions Recorded Confirmed Type Apixaban [Eliquis] 5 mg PO BID 10/05/20 03/08/23 History Metoprolol Succinate (ER) [Toprol 12.5 mg PO DAILY 10/05/20 03/08/23 History XL] Losartan [Cozaar] 50 mg PO DAILY 03/08/23 03/08/23 History Rosuvastatin [Crestor] 20 mg PO HS 03/08/23 03/08/23 History Allergies Allergy/AdvReac Type Severity Reaction Status Date / Time No Known Allergies Allergy Verified 03/15/23 08:55 Surgical - Exam Vital Signs Temp Pulse Resp BP Pulse Ox 97.4 F L 91 16 142/84 95 03/15/23 08:58 03/15/23 08:58 03/15/23 08:58 03/15/23 08:58 03/15/23 08:58 Physical exam: General: Well-developed, well-nourished HEENT: Normocephalic, sclerae nonicteric Abdomen: Nontender, nondistended Extremities: No edema Neuro: Alert and oriented Assessment and Plan (1) Colon cancer screening Narrative/Plan: Will proceed with colonoscopy at this time Current Visit: Yes Status: Acute Code(s): Z12.11 - ENCOUNTER FOR SCREENING FOR MALIGNANT NEOPLASM OF COLON SNOMED Code(s): 749920766
--- NOTE | 2023-03-15 09:49 | P.PCN ---
Date of Procedure: 03/15/23 Procedure(s) Performed: PREOPERATIVE DIAGNOSIS: Colon cancer screening with history of polyp POSTOPERATIVE DIAGNOSIS: Diverticulosis PROCEDURE: Colonoscopy ANESTHESIA: MAC SURGEON: Robi Harper M.D. SPECIMENS: None ENDOSCOPIC PROCEDURE: The patient was placed on the endoscopy table in the left decubitus position. The Olympus colonoscope was inserted into the anus and passed under direct visualization to the base of the cecum. The appendiceal orifice was visualized. From that point the scope was slowly withdrawn inspecting all surfaces carefully. There were no neoplastic inflammatory or polypoid lesions throughout the cecum, ascending, transverse, descending, sigmoid and rectum. There was mild left-sided diverticulosis noted. Digital rectal examination was normal. The patient was taken to the recovery room in stable condition per anesthesia guidelines. RECOMMENDATIONS: Resume diet. Repeat colonoscopy 5-7 years.
[2023-03-15 10:19] VITALS: BP 130/89; PULSE 79
== END 2023-03-15 10:23 | disposition home or self-care (01) ==
LOC: ORWHC2ENDO 08:39
PROVIDERS: ATTEND Surgery
DX: Z12.11 Encounter for screening for malignant neoplasm of colon (principal); E78.5 Hyperlipidemia, unspecified; I10 Essential (primary) hypertension; I48.91 Unspecified atrial fibrillation; Z79.01 Long term (current) use of anticoagulants; Z80.0 Family history of malignant neoplasm of digestive organs; Z79.899 Other long term (current) drug therapy
CPT/HCPCS: 45378; J2001; J2704

== ENCOUNTER → 2023-11-10 | Outpatient (CLI) | payer BC ==
--- NOTE | 2023-11-10 12:48 | CT ---
EXAMINATION TYPE: CT chest wo con CT DLP: 543.4 mGycm, Automated exposure control for dose reduction was used. DATE OF EXAM: 11/10/2023 12:09 PM COMPARISON: Multiple CT chest with most recent 10/20/2022 CLINICAL INDICATION:Male, 58 years old with history of R91.1 SOLITARY PULMONARY NODULE; PHH, lung nod ule TECHNIQUE: Multiple axial images were obtained through the chest without IV contrast. Lack of IV or o ral contrast limits evaluation of solid and hollow organ viscera. . Coronal and sagittal reformats re viewed. FINDINGS: LUNGS/ PLEURA: No pleural effusion, pneumothorax, focal consolidation. Stable pleural-based right low er lobe 8 x 7 mm pulmonary nodule. No new or enlarging pulmonary nodules. Couple of tiny intrafissura l lymph nodes along the left major fissure. AIRWAY: Patent and unremarkable.. HEART: Size within normal limits. No pericardial effusion. MEDIASTINUM: No gross evidence of adenopathy. VASCULATURE: No aortic aneurysm. MUSCULOSKELETAL: No acute osseous abnormalities SOFT TISSUES/LYMPH NODES: Bilateral gynecomastia. LOWER NECK: No significant findings. UPPER ABDOMEN: Diffuse low-attenuation to the liver parenchyma. Periampullary duodenal diverticulum r edemonstrated. IMPRESSION: Stable 8 x 7 mm peripheral right lower lobe pulmonary nodule. No new or enlarging pulmonary nodules. This is considered benign due to stability dating back to 2020.
[2023-11-10 15:44] LABS: Basophils # (A) 0.06 X 10*3/uL (0.00-0.10); Basophils % (A) 0.7 %; Eosinophils # (A) 0.15 X 10*3/uL (0.04-0.35); Eosinophils % (A) 1.7 %; HCT 45.7 % (39.6-50.0); HGB 15.3 g/dL (13.0-17.0); Lymphocytes # (A) 2.32 X 10*3/uL (0.90-5.00); Lymphocytes % (A) 26.9 %; MCH 30.5 pg (27.0-32.0); MCHC 33.5 g/dL (32.0-37.0); Mean Platelet Volume 9.8 FL (9.5-12.2); Monocytes # (A) 0.58 X 10*3/uL (0.20-1.00); Monocytes % (A) 6.7 %; NRBC Per 100 WBC 0 X 10*3/uL (0.00-0.01); Neutrophils # (A) 5.49 X 10*3/uL (1.80-7.70); Neutrophils % (A) 63.7 %; Platelet Count 246 X 10*3/uL (140-440); RBC 5.02 X 10*6/uL (4.40-5.60); RDW 12.6 % (11.5-14.5); WBC 8.63 X 10*3/uL (4.50-10.00)
[2023-11-10 15:51] LABS: ALT 39 U/L (10-49); AST 26 U/L (14-35); Albumin 4.7 g/dL (3.8-4.9); Albumin/Globulin Ratio 1.96 Ratio (1.60-3.17); Alkaline Phosphatase 66 U/L (41-126); Blood Urea Nitrogen 17.2 mg/dL (9.0-27.0); Calcium 10.2 mg/dL (8.7-10.3); Carbon Dioxide 25.4 mmol/L (21.6-31.8); Chloride 101 mmol/L (96-109); Chol/HDL Ratio 2.55 Ratio; Globulin 2.4 g/dL (1.6-3.3); Glucose 103 mg/dL (70-110); LDL Cholesterol,Calculated 66.2 mg/dL (0.0-131.0); Magnesium 2.1 mg/dL (1.5-2.4); Potassium 4.3 mmol/L (3.5-5.5); Prostate Specific Antigen 0.51 ng/mL (0.000-3.500); Sodium 140 mmol/L (135-145); Total Bilirubin 0.5 mg/dL (0.3-1.2); Total Protein 7.1 g/dL (6.2-8.2); Uric Acid 6.2 mg/dL (3.7-8.7)
[2023-11-10 15:56] LABS: NT-Pro-B-Type Natriuretic Pept <36 pg/mL (0-125)
[2023-11-10 16:11] LABS: Appearance,Urine Clear (Clear); Bilirubin,Urine Negative (Negative); Blood,Urine Negative (Negative); Color,Urine Yellow (Yellow); Ketones,Urine Negative (Negative); Nitrite,Urine Negative (Negative); PH, Urine 7.5; Specific Gravity,Urine 1.018 (1.001-1.030); Urobilinogen,Urine 0.2 E.U./DL
== END | disposition home or self-care (01) ==
LOC: RADCTMAIN 11:33
PROVIDERS: ATTEND Internal Medicine
DX: Z00.00 Encounter for general adult medical examination without abnormal findings (principal); R91.1 Solitary pulmonary nodule; N40.0 Benign prostatic hyperplasia without lower urinary tract symptoms; I10 Essential (primary) hypertension; I48.0 Paroxysmal atrial fibrillation
CPT/HCPCS: 71250; 80053; 80061; 81003; 82378; 83036; 83735; 83880; 84153; 84443; 84550; 85025

== ENCOUNTER → 2024-07-03 | Outpatient (CLI) | payer BC ==
[2024-07-03 11:05] LABS: Chol/HDL Ratio 2.55 Ratio; LDL Cholesterol,Calculated 78.2 mg/dL (0.0-131.0)
[2024-07-03 11:06] LABS: ALT 28 U/L (10-49); AST 22 U/L (14-35); Albumin 4.6 g/dL (3.8-4.9); Albumin/Globulin Ratio 1.84 Ratio (1.60-3.17); Alkaline Phosphatase 69 U/L (41-126); BUN/Creat Ratio 13.33 Ratio (12.00-20.00); Calcium 9.5 mg/dL (8.7-10.3); Chloride 101 mmol/L (96-109); Globulin 2.5 g/dL (1.6-3.3); Glucose 123 mg/dL (70-110); Potassium 4.3 mmol/L (3.5-5.5); Sodium 137 mmol/L (135-145); Total Bilirubin 0.4 mg/dL (0.3-1.2); Total Protein 7.1 g/dL (6.2-8.2)
== END ==
LOC: LABWHC1 07:46
PROVIDERS: ATTEND Internal Medicine Interventional Cardiology
DX: E78.2 Mixed hyperlipidemia (principal)
CPT/HCPCS: 36415; 80053; 80061